=== PATIENT | male | born 1955 | race Caucasian/White ===

== ENCOUNTER 2016-05-03 11:26 | Inpatient (IN) | payer OTHER ==
[~2016-05-03 11:26] MED LIST: BACITRACIN 50,000 UNITS/10 ML SYR IRR ONE; BUPIVACAINE/EPI 0.25% 30 ML SDV ONE; CHLORHEXIDINE GLUC HIBICLENS 118 ML BTL TP ONE; THROMBIN (RECOMBINANT) 5,000 UNIT VIAL TP ONE; ceFAZolin 2 GM/DEXTROSE 100 ML IV ONE
[2016-05-03] MEDS ORDERED: LIDOCAINE 1% 5 ML SDV ID PRN (12:12)
[2016-05-03] MEDS ORDERED: LR 1,000 ML IV ONE (12:12)
[2016-05-03] MEDS ORDERED: LIDOCAINE 1% 5 ML SDV ONE (12:13)
[2016-05-03] MEDS ORDERED: CEFAZOLIN 2 GM/DEXTROSE/100 ML BAG IV ONE (12:16)
[2016-05-03] MEDS ORDERED: MIDAZOLAM 2 MG/2 ML VIAL ONE (12:58)
[2016-05-03] MEDS ORDERED: ONDANSETRON 4 MG/2 ML VIAL ONE (13:08)
[2016-05-03] MEDS ORDERED: fentaNYL 100 MCG/2 ML INJ ONE ×3 (13:08→16:50)
[2016-05-03] MEDS ORDERED: DEXAMETHASONE 4 MG/ML VIAL ONE ×2 (13:08)
[2016-05-03] MEDS ORDERED: ROCURONIUM 50 MG/5 ML VIAL ONE (13:10)
[2016-05-03] MEDS ORDERED: LIDOCAINE 2% 5 ML SDV ONE (13:11)
[2016-05-03] MEDS ORDERED: PROPOFOL/EMULSION 500 MG/50 ML BOTTLE IV ONE (13:11)
[2016-05-03] MEDS ORDERED: epHEDrine SULFATE 10 MG/ML SYR ONE ×2 (13:34→13:44)
[2016-05-03] MEDS ORDERED: NON-FORMULARY NEW DRUG (Zolpidem Tartrate [Ambien 10 Mg] 10 MG) PO PRN (13:47)
[2016-05-03] MEDS ORDERED: GABAPENTIN 300 MG CAP PO PRN (13:47)
[2016-05-03] MEDS ORDERED: HYDROmorphONE/DILAUDID 1 MG/ML SYR IVP PRN (13:48)
[2016-05-03] MEDS ORDERED: DIAZEPAM 10 MG/2 ML SYR IVP PRN (13:48)
[2016-05-03] MEDS ORDERED: MAGNESIUM HYDROXIDE 30 ML UDCUP PO PRN (13:48)
[2016-05-03] MEDS ORDERED: NALOXONE HCL 0.4 MG/ML INJ IVP PRN (13:48)
[2016-05-03] MEDS ORDERED: oxyCODONE IR 5 MG TAB PO PRN (13:48)
[2016-05-03] MEDS ORDERED: ONDANSETRON 4 MG/2 ML VIAL IVP PRN (13:48)
[2016-05-03] MEDS ORDERED: POLYETHYLENE GLYCOL 3350 17 GM PKT PO PRN (13:48)
[2016-05-03] MEDS ORDERED: LACTULOSE 20 GM/30 ML UDCUP PO PRN (13:48)
[2016-05-03] MEDS ORDERED: BISACODYL 10 MG SUPP PR PRN (13:48)
[2016-05-03] MEDS ORDERED: METHOCARBAMOL 750 MG TAB PO PRN (13:48)
[2016-05-03] MEDS ORDERED: DIAZEPAM 5 MG TAB PO PRN (13:48)
[2016-05-03] MEDS ORDERED: TEMAZEPAM 15 MG CAP PO PRN (13:48)
[2016-05-03] MEDS ORDERED: ONDANSETRON DISINTEGRATING 4 MG TAB PO PRN (13:48)
[2016-05-03] MEDS ORDERED: diphenhydrAMINE 25 MG CAP PO PRN (13:48)
[2016-05-03] MEDS ORDERED: NS W/ 20 KCl/L 1,000 ML IV SCH (14:00)
[2016-05-03] MEDS ORDERED: REMIFENTANIL HCL 1 MG VIAL ONE (14:01)
[2016-05-03] MEDS ORDERED: ZOLPIDEM TARTRATE 5 MG TAB PO PRN (14:45)
[2016-05-03] MEDS ORDERED: PROPOFOL 200 MG/20 ML VIAL ONE (15:15)
[2016-05-03] MEDS ORDERED: BACITRACIN 50,000 UNITS/10 ML SYR IRR ONE (15:31)
--- NOTE | 2016-05-03 16:26 | SOAPPROG ---
SOAP Progress Note Assessment/Plan: Post Op Visit: S: Awake and alert. NAD. Pt with expected neck pain O: AFVSS/PERRLA/EOMI no droop CN 2-12 grossly intact +lt touch 5/5 BUE/BLE= CDI Neck soft and supple A/P: 61 yo male that is s/p ACDF C5-C7 -orders in -call with any changes or issues -pt seen by Dr Porter as well 05/03/16 16:19 ICD10 Worksheet Patient Problems: Problems Problem Status Diagnosed Arthrodesis status Acute Cervical radicular pain Acute Cervical spinal stenosis Acute - ICD10 Problem Qualifiers (1) Cervical spinal stenosis (2) Cervical radicular pain (3) Arthrodesis status
--- NOTE | 2016-05-03 16:57 | DX ---
Intraoperative fluoroscopy History: C5-C7 ACDF. Comparison: MR cervical spine February 25, 2016. Findings: Three intraoperative spot films show ACDF from C5 through C7, with limited visualization of the inferior fusion construct. Fluoro time: 14.3 seconds. Dose: 2.6 mGy. Impression: Intraoperative fluoroscopy as above.
--- NOTE | 2016-05-03 18:33 | GOP ---
[f rep st] OPERATIVE REPORT DATE OF OPERATION: 05/03/2016 SURGEON: Tristin Porter MD COMPUTER VIDEO GAME DESIGNER: Montana Rowell PA-C. PREOPERATIVE DIAGNOSIS: Cervical spondylosis, cervical radiculopathy, degenerative disk disease, ce rvical stenosis C5-6, C6-7. POSTOPERATIVE DIAGNOSIS: Cervical spondylosis, cervical radiculopathy, degenerative disk disease, c ervical stenosis C5-6, C6-7. PROCEDURE PERFORMED: Anterior cervical diskectomy with arthrodesis and decompression C5-6, C6-7 ([phone], [id number]), placement of biomechanical intervertebral device without anchoring plates at C5-6, C6-7 ( 36587 x 2), anterior cervical plate (80628), same incision bone graft harvest (45706), microscope ([phone]). FINDINGS: ESTIMATED BLOOD LOSS: 30 cc. INDICATIONS: The patient is a 61-year-old who had struggled with cervical radiculopathy both on the right and the left, who presented with left greater than right symptoms currently, and his MRI demons trated degenerative disk disease and spondylosis at C5-6 with central stenosis there, and a right par acentral disk herniation with bilateral foraminal stenosis. C6-7 demonstrated similar findings, but there was left greater than right foraminal stenosis at C6-7, and it was the left foramen that had us concerned at C6-7, particularly given the patient's left-sided pain. We suggested 2-level decompres dilia. There were some abnormalities at C7-T1 and C4-5, but none of these warranted surgery, and he w as offered an intervention at those 2 levels. The risk of esophageal injury, carotid injury, recurre nt laryngeal nerve injury, dysphagia, pseudarthrosis, adjacent segment disease was discussed. He und erstood these risks. He wanted to proceed. He knew there was a chance surgery would fail to give hi m any benefit, but he accepted these risks. DESCRIPTION OF PROCEDURE: Patient was taken to the operating room, placed in supine position, and ge neral anesthesia was begun. A midline shoulder roll was placed. The head was put on the horseshoe h ead mott. Care was taken to pad all points of contact. His neck was sterilely prepped and draped in the usual fashion. We made a transverse incision in the lower neck crease on the right-hand side. The subcutaneous tissue was dissected using Bovie cautery through the platysma. We then used a com bination of sharp and blunt dissection to work our way medial to the sternocleidomastoid and lateral to the strap muscles, down to the prevertebral space. The dissection was straightforward. We pushed the omohyoid muscle inferiorly, put a needle in the C6-7 disk, shot a localizing x-ray, and then rem anais the bony osteophytes at C5-6 and dissected the longus colli muscles off the spine from C5 to C7. The osteophytes at C6-7 were removed. We placed distraction pins at C5 and C6, and under the micro scope we removed the C5-6 disk and the cartilaginous endplates. We then drilled and harvested subcho ndral bone for autologous grafting purposes, and then opened the posterior longitudinal ligament and decompressed the thecal sac and the neural foramina bilaterally. We identified each of the exiting C 6 nerve roots. A nice decompression was obtained. We then took a 14 x 18 x 7 mm device packed with autologous bone dust, inserted at C5-6, and a great fit was obtained. We removed our distraction pin s and did likewise at C6-7, removing the disk, cartilaginous endplates. We harvested subchondral bon e, opened the PLL, decompressed the thecal sac and the neural foramina bilaterally, and we found exac tly what we expected, left greater than right foraminal stenosis. There at C5-6, there was bilateral foraminal stenosis. A nice decompression at C6-7 was obtained. We took an 8 x 14 x 18 mm device an d packed it with autologously harvested bone dust. We needed some additional bone dust; we spent fletcher e additional time removing some more of the ventral osteophytes at C5-6 and C6-7, and packed the impl ant. It was inserted at C6-7, and a nice fit was obtained. We removed our distraction pins, placed Gelfoam bullets in the holes that remained, placed a plate down from C5 to C7, put a single screw at C5, a single screw at C7, shot a localizing x-ray, and then placed all the remaining 6 total screws i n the plate, shot a final x-ray, and all the hardware was in excellent position. We locked the screw s according to company specifications, achieved meticulous hemostasis. We then placed the dysphagia study drug in the prevertebral space, and then closed the platysma with interrupted Vicryl sutures, a nd the skin with interrupted Vicryl sutures. Steri-Strips were applied. The patient was reversed fr om anesthesia, extubated, and transferred to recovery room in stable condition. There were no compli cations. COMPLICATIONS: None. INSTRUMENTATION USED: [employer] Snowcap plate with 16 mm screws, 38 mm plate. We used 2.0 high- angle caps, and we used a 14 x 18 x 7 mm implant at C5-6 and a 14 x 18 x 8 mm implant at C6-7. /[id number]/MODL
[2016-05-03] MEDS ORDERED: FAMOTIDINE 20 MG/NACL 50 ML IV SCH (21:00)
[2016-05-03] MEDS: FAMOTIDINE 20 MG TAB PO SCH (21:20)
[2016-05-03] MEDS: SENNOSIDES/DOCUSATE SODIUM TAB PO SCH (21:20)
[2016-05-04] MEDS ORDERED: LEVOTHYROXINE 88 MCG TAB PO SCH (06:00)
[2016-05-04 07:56] VITALS: BP 125/76; PULSE 64; RESP 18; TEMP 98.2; O2SAT 97
--- NOTE | 2016-05-04 07:56 | NEUSURGPN ---
Assessment/Plan: A/P: 61 yo male that is s/p ACDF C5-C7 -Doing well, swallowing well, has some posterior scapular pain -[facility] pain management- scripts on chart -PT/OT -Postop x-rays pending this am -Dispo- Ok to go home later today once x-rays done -call with any changes or issues -pt seen by Dr Porter as well Subjective: Patient doing well,some posterior scapular pain. Arm pain somewhat improved. No swallowing issues. Sore throat as expected. Objective: O: AFVSS/PERRLA/EOMI +lt touch 5/5 BUE/BLE= CDI Neck soft and supple - Physician Discussed Patient with Dr.: German Patient Seen by : [facility] Physical Exam - Vitals, I&O, Labs I and O 05/03/16 05/04/16 05/05/16 05:59 05:59 05:59 Intake Total 1385 Balance 1385 Weight 92.986 kg Intake: Oral (ml) 300 IV Infused (ml) 1085 ceFAZolin 1 GM/DEXTROSE 100 50 ml @ 200 mls/hr IV Q8H BECKY Rx#:[id number] NS W/ 20 KCl/L 1,000 ml @ 985 75 mls/hr IV CONT BECKY Rx #:[id number] Other: Number of Voids Toilet 2 Vital Signs Temp Pulse Resp BP Pulse Ox 36.9 C 70 16 109/68 98 05/04/16 03:34 05/04/16 03:34 05/04/16 03:34 05/04/16 03:34 05/04/16 03:34 ICD10 Worksheet Patient Problems: Problems Problem Status Diagnosed Arthrodesis status Acute Cervical radicular pain Acute Cervical spinal stenosis Acute
[2016-05-04] MEDS ORDERED: PRESERVISION AREDS 2 EYE VITAMIN 1 EACH PO SCH (09:00)
[2016-05-04] MEDS ORDERED: FLUTICASONE NASAL 120 SPRAYS/16 GM MDI EACHNARE SCH (09:00)
[2016-05-04] MEDS: SENNOSIDES/DOCUSATE SODIUM TAB PO SCH (09:03)
[2016-05-04] MEDS: FAMOTIDINE 20 MG TAB PO SCH (09:04)
--- NOTE | 2016-05-04 09:09 | DX ---
Two-View Cervical Spine Clinical Indication: Fusion. Comparison: May 03, 2016, at 1400 hours. Findings: The two-level interbody disk spacers and three-level fusion are in good anatomic alignment from C5 through C7. Disk space is relatively well maintained at C7-T1. Small amount of gas is presen t consistent with postop day #1 status. Impression: Three-level fusion from C5 through C7 in good anatomic positioning.
[2016-05-06] MEDS ORDERED: ENOXAPARIN 40 MG/0.4 ML SYR SC SCH (09:00)
== END 2016-05-04 11:11 | disposition home or self-care (01) | DRG 473 ==
LOC: F3N 11:26
PROVIDERS: ADMIT Neurological Surgery; ATTEND Neurological Surgery
PROC: 0RG20A0 Fusion of 2 or more Cervical Vertebral Joints with Interbody Fusion Device, Anterior Approach, Anterior Column, Open Approach (ICD-10-PCS; principal; 2016-05-03 13:30)
PROC: 01N10ZZ Release Cervical Nerve, Open Approach (ICD-10-PCS; principal; 2016-05-03 13:30)
PROC: 0RB30ZZ Excision of Cervical Vertebral Disc, Open Approach (ICD-10-PCS; principal; 2016-05-03 13:30)
DX: M47.22 Other spondylosis with radiculopathy, cervical region (principal); M48.02 Spinal stenosis, cervical region; M50.10 Cervical disc disorder with radiculopathy, unspecified cervical region
CPT/HCPCS: 92610-GN; 97116-GP; 97161-GP; 97165-GO; C1713; G8978-GP-CI; G8979-GP-CH; G8980-GP-CH; J0690; J1100; J2250; J2405; J2704; J3010